=== PATIENT | male | born 1955 | race Hispanic/Latino ===

== ENCOUNTER 2023-02-09 03:29 | Emergency (ER) | payer OTHER ==
[2023-02-09] MEDS ORDERED: NITROGLYCERIN 0.4 MG/TAB SL ONE (04:04)
[2023-02-09] MEDS ORDERED: ASPIRIN 81 MG CHEWABLE TABLET ONE (04:04)
[2023-02-09 04:30] LABS: Absolute Lymphocytes (CBC) 0.7 K/uL (0.7-4.9); Hematocrit 38.5 % (39.6-49.0); MCV 86.8 fL (80-100); MPV 9.8 fL (7.6-11.3); Platelets 97 thou/uL (152-406); RBC Red Blood Cell Count 4.43 M/uL (4.33-5.43)
[2023-02-09 04:46] LABS: Albumin 3.4 g/dL (3.4-5.0); Bilirubin Direct 0.1 mg/dL (0-0.2); Bilirubin Indirect, Calculated 0.4 mg/dL (0.2-0.8); Bilirubin Total 0.5 mg/dL (0.2-1.0); Protein, Total 6.8 g/dL (6.4-8.2); Troponin High Sensitivity 22.8 pg/mL (<58.9)
[2023-02-09 05:10] LABS: Blood Morphology Comment NOT SEEN (NOT SEEN); Platelet Estimate DECR; White Blood Cell Scan OK (OK)
[2023-02-09] MEDS ORDERED: POTASSIUM CL SA 10 MEQ TAB PO ONE (05:31)
--- NOTE | 2023-02-09 06:31 | ER ---
Nurse's Notes [facility] Name: Jose Carlos Caceres Age: 67 yrs Sex: Male : 1955 Arrival Date: 02/09/2023 Time: 03:29 Bed 3 Private MD: Diagnosis: Chest pain, unspecified Presentation: 02/09 03:36 Chief complaint: EMS states: PT reported having 8/10 chest pain on arrival that began kd3 30 minutes prior to EMS being on scene. Coronavirus screen: Vaccine status: Patient reports receiving the 2nd dose of the covid vaccine. Ebola Screen: No symptoms or risks identified at this time. Initial Sepsis Screen: Does the patient meet any 2 criteria? No. Patient's initial sepsis screen is negative. Does the patient have a suspected source of infection? No. Patient's initial sepsis screen is negative. Risk Assessment: Do you want to hurt yourself or someone else? Patient reports no desire to harm self or others. Onset of symptoms was February 09, 2023. 03:36 Method Of Arrival: EMS: [facility] kd3 03:36 Acuity: BRIAN 3 kd3 Triage Assessment: 03:41 General: Appears uncomfortable, Behavior is calm, cooperative. Pain: Complains of pain kd3 in chest Pain currently is 6 out of 10 on a pain scale. Cardiovascular: Patient's skin is warm and dry. Historical: - Allergies: 03:41 Zocor; kd3 - PMHx: 03:41 Hypercholesterolemia; Hypertensive disorder; kd3 - Immunization history:: Adult Immunizations up to date. - Social history:: Smoking status: Patient reports the use of cigarette tobacco products, cigars. Screenin:56 [facility] ED Fall Risk Assessment (Adult) History of falling in the last 3 months, kd3 including since admission No falls in past 3 months (0 pts) Confusion or Disorientation No (0 pts) Intoxicated or Sedated No (0 pts) Impaired Gait No (0 pts) Mobility Assist Device Used No (0 pt) Altered Elimination No (0 pt) Score/Fall Risk Level 0 - 2 = Low Risk Maintained a safe environment. Abuse screen: Denies threats or abuse. Denies injuries from another. Nutritional screening: No deficits noted. Tuberculosis screening: No symptoms or risk factors identified. Assessment: 03:56 General: Appears in no apparent distress. Behavior is calm, cooperative. Pain: kd3 Complains of pain in chest Pain does not radiate. Pain currently is 6 out of 10 on a pain scale. Pain began gradually. 03:56 Neuro: Level of Consciousness is awake, alert, obeys commands, Oriented to person, kd3 place, time, situation. Cardiovascular: Patient's skin is warm and dry. Respiratory: Airway is patent Trachea midline Respiratory effort is even, unlabored, Respiratory pattern is regular, symmetrical. 04:10 Pain: Pain currently is 5 out of 10 on a pain scale. kd3 04:10 General: Pt rates his chest pain a 5 out of 10 now after 1 dose of nitro. Pt states he kd3 doesn't want any more nitro because he doesn't like the way it makes him feel. Pt offered other pain medication options but refuses at this time. . 05:38 Reassessment: Patient appears in no apparent distress at this time. Patient and/or jb4 family updated on plan of care and expected duration. Pain level reassessed. Patient is alert, oriented x 3, equal unlabored respirations, skin warm/dry/pink. 07:03 Reassessment: Patient appears in no apparent distress at this time. Patient and/or jb4 family updated on plan of care and expected duration. Pain level reassessed. Patient is alert, oriented x 3, equal unlabored respirations, skin warm/dry/pink. Vital Signs: 03:36 BP 151 / 77; Pulse 73; Resp 16; Temp 97.4(O); Pulse Ox 98% on R/A; Weight 84.82 kg; kd3 Height 5 ft. 10 in. ; 05:17 BP 110 / 68; Pulse 73; Resp 19; Pulse Ox 100% on R/A; kd3 05:29 BP 135 / 70; Pulse 74; Resp 18; Pulse Ox 99% on R/A; kd3 07:03 BP 126 / 72; Pulse 72; Resp 16; Pulse Ox 98% on R/A; jb4 03:36 Body Mass Index 26.83 (84.82 kg, 177.8 cm) kd3 ED Course: 03:31 Patient arrived in ED. sb4 03:33 Juan Dang MD is Attending Physician. rt 03:36 Kari Barkley RN is Primary Nurse. kd3 03:41 Triage completed. kd3 03:41 Arm band placed on right wrist. kd3 03:47 XRAY Chest (1 view) In Process Unspecified. EDMS 03:51 Missed attempt(s): 20 gauge in right antecubital area. kd3 03:51 Missed attempt(s): 20 gauge in right forearm. kd3 03:57 Patient has correct armband on for positive identification. Provided Education on: . kd3 Client placed on continuous cardiac and pulse oximetry monitoring. NIBP monitoring applied. library monitor on. 03:57 No provider procedures requiring assistance completed. Patient maintains SpO2 kd3 saturation greater than 95% on room air. 04:12 Troponin HS Sent. kd3 04:12 NT PRO-BNP Sent. kd3 04:12 Magnesium Sent. kd3 04:12 LFT's Sent. kd3 04:12 CBC with Diff Sent. kd3 04:12 Basic Metabolic Panel Sent. kd3 07:03 IV discontinued, intact, bleeding controlled, No redness/swelling at site. Pressure jb4 dressing applied. Administered Medications: 03:56 Drug: Aspirin PO Chewable Tablet 324 mg Route: PO; kd3 03:56 Drug: Nitroglycerin Sublingual 0.4 mg Route: Sublingual; kd3 04:10 Not Given (Patient Refused): fentaNYL (PF) IVP 50 mcg IVP once kd3 05:32 Drug: Potassium Chloride PO 40 mEq Route: PO; jb4 Medication: 03:57 VIS not applicable for this client. kd3 Outcome: 06:31 Discharge ordered by . rt 07:03 Discharged to home ambulatory. jb4 07:03 Condition: stable 07:03 Discharge instructions given to patient, Instructed on discharge instructions, follow up and referral plans. Demonstrated understanding of instructions, follow-up care. 07:04 Patient left the ED. jb4 Signatures: Dispatcher [employer] EDErvin Durand RN RN jb4 Kari Barkley RN RN kd3 Sylvia Odom, PAAmi PAKinC [email or web address] Juan Dang MD MD rt
--- NOTE | 2023-02-09 06:31 | EDPHYS ---
Physician Documentation [facility] Name: Jose Carlos Caceres Age: 67 yrs Sex: Male : 1955 Arrival Date: 02/09/2023 Time: 03:29 Bed 3 Private MD: ED Physician Juan Dang HPI: 02/09 03:39 This 67 yrs old Male presents to ER via Unassigned with complaints of Chest Pain. rt 03:39 Patient with history of hypertension presents to the ED with chest pain that woke him rt up from sleep. He reports that it is sharp in nature, localized to the left side of the chest, is nonradiating. He reported feeling dizzy at that time but no other symptoms. Denies other aggravating or alleviating factors. Patient states that the pain is more intense at onset, has somewhat improved but not resolved.. Historical: - Allergies: 03:41 Zocor; kd3 - PMHx: 03:41 Hypercholesterolemia; Hypertensive disorder; kd3 - Immunization history:: Adult Immunizations up to date. - Social history:: Smoking status: Patient reports the use of cigarette tobacco products, cigars. ROS: 03:39 Constitutional: Negative for fever, chills, and weight loss, Respiratory: Negative for rt shortness of breath, cough, wheezing, and pleuritic chest pain, Abdomen/GI: Negative for abdominal pain, nausea, vomiting, diarrhea, and constipation, MS/Extremity: Negative for injury and deformity, Skin: Negative for injury, rash, and discoloration, Psych: Negative for depression, anxiety, suicide ideation, homicidal ideation, and hallucinations. 03:39 Cardiovascular: Positive for chest pain, Negative for edema. 03:39 Neuro: Positive for dizziness, Negative for altered mental status. Exam: 03:39 Constitutional: This is a well developed, well nourished patient who is awake, alert, rt and in no acute distress. Head/Face: Normocephalic, atraumatic. Chest/axilla: Normal chest wall appearance and motion. Nontender with no deformity. No lesions are appreciated. Cardiovascular: Regular rate and rhythm with a normal S1 and S2. No gallops, murmurs, or rubs. Normal PMI, no JVD. No pulse deficits. Respiratory: Lungs have equal breath sounds bilaterally, clear to auscultation and percussion. No rales, rhonchi or wheezes noted. No increased work of breathing, no retractions or nasal flaring. Abdomen/GI: Soft, non-tender, with normal bowel sounds. No distension or tympany. No guarding or rebound. No evidence of tenderness throughout. Skin: Warm, dry with normal turgor. Normal color with no rashes, no lesions, and no evidence of cellulitis. MS/ Extremity: Pulses equal, no cyanosis. Neurovascular intact. Full, normal range of motion. Neuro: Awake and alert, GCS 15, oriented to person, place, time, and situation. Cranial nerves II-XII grossly intact. Motor strength 5/5 in all extremities. Sensory grossly intact. Cerebellar exam normal. Normal gait. Psych: Awake, alert, with orientation to person, place and time. Behavior, mood, and affect are within normal limits. 03:48 ECG was reviewed by the Attending Physician. rt Vital Signs: 03:36 BP 151 / 77; Pulse 73; Resp 16; Temp 97.4(O); Pulse Ox 98% on R/A; Weight 84.82 kg; kd3 Height 5 ft. 10 in. ; 05:17 BP 110 / 68; Pulse 73; Resp 19; Pulse Ox 100% on R/A; kd3 05:29 BP 135 / 70; Pulse 74; Resp 18; Pulse Ox 99% on R/A; kd3 07:03 BP 126 / 72; Pulse 72; Resp 16; Pulse Ox 98% on R/A; jb4 03:36 Body Mass Index 26.83 (84.82 kg, 177.8 cm) kd3 MDM: 03:33 Patient medically screened. rt 06:31 Differential diagnosis: acute myocardial infarction, pneumonia, pneumothorax. HEART rt Score: History: Slightly Suspicious (0), ECG: Normal (0), Age: > or = 65 years (2), Risk Factors: 1 or 2 risk factors (1), Troponin: < or = 1 x Normal Limit (0), Total Score = 3. The patient was given aspirin in the Emergency Department. Data reviewed: vital signs, nurses notes, lab test result(s), EKG, radiologic studies. Consideration of Admission/Observation Escalation of care including admission/observation considered. Offered patient mission to the hospital, strongly desirous of discharge, repeat troponin shows no changes. Patient is chest pain-free, comfortable with discharge. Strict return precautions were given. Patient to follow-up in the outpatient setting with cardiology in his hometown.. Independent interpretation of the following test(s) in the Emergency Department X-Ray: My interpretation is No consolidation seen on interpretation of the x-ray images. Test considered but Not performed: CT: Low suspicion for PE, CT angiogram not indicated. Care significantly affected by the following chronic conditions: Hypertension. Counseling: I had a detailed discussion with the patient and/or guardian regarding: the historical points, exam findings, and any diagnostic results supporting the discharge/admit diagnosis, lab results, radiology results, the need for outpatient follow up, to return to the emergency department if symptoms worsen or persist or if there are any questions or concerns that arise at home. Response to treatment: the patient's symptoms have resolved after treatment. 02/09 03:34 Order name: Basic Metabolic Panel; Complete Time: 04:59 rt 02/09 03:34 Order name: CBC with Diff; Complete Time: 05:17 rt 02/09 03:34 Order name: LFT's; Complete Time: 04:59 rt 02/09 03:34 Order name: Magnesium; Complete Time: 04:59 rt 02/09 03:34 Order name: NT PRO-BNP; Complete Time: 04:59 rt 02/09 03:34 Order name: Troponin HS; Complete Time: 04:59 rt 02/09 04:35 Order name: CBC Smear Scan; Complete Time: 05:17 EDMS 02/09 05:17 Order name: Troponin High Sensitivity; Complete Time: 06:11 rt 02/09 03:34 Order name: XRAY Chest (1 view) rt 02/09 03:34 Order name: EKG; Complete Time: 03:34 rt 02/09 03:34 Order name: Cardiac monitoring; Complete Time: 03:52 rt 02/09 03:34 Order name: EKG - Nurse/Tech; Complete Time: 03:52 rt 02/09 03:34 Order name: IV Saline Lock; Complete Time: 04:12 rt 02/09 03:34 Order name: Labs collected and sent; Complete Time: 04:12 rt 02/09 03:34 Order name: O2 Per Protocol; Complete Time: 03:52 rt 02/09 03:34 Order name: O2 Sat Monitoring; Complete Time: 03:52 rt EC:48 Rate is 69 beats/min. Rhythm is regular, Normal Sinus Rhythm with No ectopy. QRS [place] rt is Normal. [place] interval is normal. QRS interval is normal. QT interval is normal. No Q waves. T waves are Normal. No ST changes noted. Interpreted by me. Administered Medications: 03:56 Drug: Aspirin PO Chewable Tablet 324 mg Route: PO; kd3 03:56 Drug: Nitroglycerin Sublingual 0.4 mg Route: Sublingual; kd3 04:10 Not Given (Patient Refused): fentaNYL (PF) IVP 50 mcg IVP once kd3 05:32 Drug: Potassium Chloride PO 40 mEq Route: PO; jb4 Disposition Summary: 02/09/23 06:31 Discharge Ordered Location: Home rt Problem: new rt Symptoms: are resolved rt Condition: Stable rt Diagnosis - Chest pain, unspecified rt Followup: rt - With: Private Physician - When: 2 - 3 days - Reason: Discharge Instructions: - Discharge Summary Sheet rt - Nonspecific Chest Pain, Adult rt Forms: - Medication Reconciliation Form rt - Thank You Letter rt - Antibiotic Education rt - Prescription Opioid Use rt - Patient Portal Instructions rt - Leadership Thank You Letter rt Signatures: Dispatcher [employer] Ervin Toney RN RN jb4 Kari Barkley RN RN kd3 Juan Dang MD MD rt
[2023-02-09 07:09] VITALS: TEMP 97.4
[2023-02-09 07:14] VITALS: BP 126/72; O2SAT 98
--- NOTE | 2023-02-09 13:10 | EKG ---
Test Date: 2023-02-09 Test Time: 03:38:05 Seed Buyer: CHINTAN MEASUREMENT RESULTS: Intervals: Rate: 69 AL: 186 QRSD: 106 QT: 436 QTc: 467 [place]: P: 73 AL: 186 QRS: 55 T: 45 INTERPRETIVE STATEMENTS: Normal sinus rhythm Normal ECG No previous ECG available for comparison Electronically Signed On 02-09-23 13:09:22 CDT by Leonardo Cunha
--- NOTE | 2023-02-09 14:47 | RAD REPORT ---
EXAM DESCRIPTION: RAD - Chest Single View - 02/09/2023 3:45 am CLINICAL HISTORY: The patient is 67 years old and is Male; CHEST PAIN TECHNIQUE: Frontal view of the chest. COMPARISON: No relevant prior studies available. FINDINGS: Lungs: Unremarkable. No consolidation. Pleural space: Unremarkable. No pneumothorax. Heart: Unremarkable. Mediastinum: Unremarkable. Bones/joints: Unremarkable. IMPRESSION: No acute findings in the chest. Electronically signed by: Fady Zuñiga MD 02/09/2023 4:06 AM CDT Due to temporary technical issues with the PACS/Fluency reporting system, reports are being signed by the in house radiologist without review as a courtesy to ensure prompt reporting. The interpreting r adiologist is fully responsible for the content of the report.
== END 2023-02-09 07:04 | disposition home or self-care (01) ==
LOC: ER 03:29
DX: R07.89 Other chest pain (principal); I10 Essential (primary) hypertension; Z72.0 Tobacco use; Z88.8 Allergy status to other drugs, medicaments and biological substances
CPT/HCPCS: 36415; 71045; 80048; 80076; 83735; 83880; 84484; 85025; 93005; 99285